=== PATIENT | male | born 2000 | race Caucasian/White ===

== ENCOUNTER 2021-01-18 00:02 | Emergency (ER) | payer MEDICAID ==
[~2021-01-18] VITALS: Ht 175.3 cm; Wt 66.0 kg
[2021-01-18] MEDS ORDERED: CEFTRIAXONE SODIUM 500 MG/VIAL IM ONE (01:15)
[2021-01-18] MEDS ORDERED: AZITHROMYCIN 500 MG TABLET PO ONE (01:15)
[2021-01-18 01:30] LABS: CLARITY URINE CLEAR (CLEAR); COLOR URINE DARK YELLOW (YELLOW); KETONES URINE 2+ (NEGATIVE); LEUKOCYTE ESTERASE URINE NEGATIVE (NEGATIVE); NITRITE URINE NEGATIVE (NEGATIVE); OCCULT BLOOD URINE NEGATIVE (NEGATIVE); PH URINE 5.5 (4.5-8.0); PROTEIN URINE TRACE (NEGATIVE); SPECIFIC GRAVITY URINE 1.035 (1.005-1.030)
[2021-01-18] MEDS ORDERED: LIDOCAINE HCL/PF 1% 10 MG/ML 5ML VIAL INFIL ONE (01:30)
[2021-01-18] MEDS ORDERED: LIDOCAINE HCL 1% 10 MG/ML 10ML VIAL INJ NR (01:30)
[2021-01-18 02:35] VITALS: BP 125/55
[2021-01-18] MEDS ORDERED: DOXY100T2 MT (21:27)
== END 2021-01-18 02:35 | disposition home or self-care (01) ==
LOC: ER 00:02
DX: R30.0 Dysuria (principal)
CPT/HCPCS: 81003; 96372; 99283; J0696; J3490

== ENCOUNTER 2021-01-18 19:29 | Emergency (ER) | payer MEDICAID ==
[~2021-01-18] VITALS: Ht 175.3 cm; Wt 66.0 kg
[2021-01-18] MEDS ORDERED: DOXY100T2 MT (21:27)
[2021-01-18] MEDS ORDERED: PENICILLIN G BENZATHINE 2,400,000 UNITS/4ML SYR IM ONE (21:30)
[2021-01-18 22:00] VITALS: BP 128/85
== END 2021-01-18 22:15 | disposition home or self-care (01) ==
LOC: ER 19:29
DX: Z20.2 Contact with and (suspected) exposure to infections with a predominantly sexual mode of transmission (principal)
CPT/HCPCS: 96372; 99283; J0561